=== PATIENT | female | born 1935 | race Caucasian/White ===

== ENCOUNTER 2017-12-21 14:53 | Inpatient (IN) | payer MEDICARE ==
[~2017-12-21] VITALS: Ht 160 cm; Wt 81.9 kg
--- NOTE | ~2017-12-21 | EKG ---
[place], [place] ELECTROCARDIOGRAM REPORT NAME: MAGGIE GARCES UNIT #: [id number] ROOM: 524 DOCTOR: JACE DRAFT REPORT BIRTHDATE: [birth year] [facility] Test Date: 2017-12-21 Test Time: 15:39:19 Pat Name: MAGGIE GARCES Department: Patient ID: ELOH- Room: Gender: F Housing Specialist: SS RESP : 1935 Requested By: KRZYSZTOF WEINSTEIN Order Number: [id number] Reading MD: Zheng Lenz MD Measurements Intervals [place] Rate: 69 P: -32 DE: 181 QRS: -27 QRSD: 103 T: 31 QT: 448 QTc: 480 Interpretive Statements Sinus rhythm Borderline left axis deviation Low voltage, precordial leads Abnormal R-wave progression, early transition Electronically Signed On 12-21-2017 21:02:49 PDT by Zheng Lenz MD CM:EKGRPT:ELECTROCARDIOGRAM REPORT [id number] KRZYSZTOF MCCORMICK DRAFT REPORT KRZYSZTOF WEINSTEIN MD
[2017-12-21 14:55] VITALS: BP 92/33
[2017-12-21 15:55] LABS: BASO # 0.1 10*3/uL (0.0-0.1); BASO % 0.6 % (0.0-1.0); EOS # 0.1 10*3/uL (0.0-0.4); EOS % 1.1 % (1.0-4.0); HEMATOCRIT 34.6 % (37.0-47.0); HEMOGLOBIN 11.3 g/dl (12.0-16.0); LYMPH # 1.9 10*3/uL (1.3-4.4); LYMPH % 23.9 % (27.0-41.0); MEAN CORPUSCULAR HGB 30.4 pg (27.0-31.0); MEAN CORPUSCULAR HGB CONC 32.7 g/dl (33.0-37.0); MEAN PLATELET VOLUME 10.3 fl (9.6-12.3); MONO # 0.6 10*3/uL (0.1-1.0); MONO % 7.8 % (3.0-9.0); NEUT # 5.3 10*3/uL (2.3-7.9); NEUT % 66.2 % (47.0-73.0); PLATELET COUNT AUTOMATED 212 10*3/uL (130-400); RED BLOOD COUNT 3.72 10*6/uL (4.10-5.10)
[2017-12-21 16:03] LABS: ACT PARTIAL THROMBO TIME 22.1 SECONDS (20.8-31.5); INTERNATIONAL NORM RATIO 1.1 (2.0-3.5)
[2017-12-21 16:10] LABS: ALBUMIN 2.9 gm/dl (3.1-4.5); ALKALINE PHOSPHATASE 125 U/L (45-117); BUN 43 mg/dl (7-24); CHLORIDE 110 mmol/L (98-107); CREATININE 1.51 mg/dL (0.55-1.02); POTASSIUM 3.8 mmol/L (3.5-5.1); SGOT/AST 22 IU/L (3-35); SGPT/ALT 39 U/L (12-78); SODIUM 142 mmol/L (136-145); TOTAL PROTEIN 5.8 gm/dL (6.4-8.2)
[2017-12-21 16:12] LABS: TROPONIN I < 0.015 ng/ml (<0.045)
[2017-12-21 17:32] VITALS: BP 129/59
[2017-12-21] MEDS ORDERED: POTASSIUM CHLO10 MEQ PO (18:21)
[2017-12-21] MEDS ORDERED: TRAVATAN Z 2.52.5 ML OU (18:22)
[2017-12-21] MEDS ORDERED: LEVOTHYROXINE50 MCG PO (18:22)
[2017-12-21] MEDS ORDERED: LOSARTAN-HCTZ1 EAC1 PO (18:23)
[2017-12-21] MEDS ORDERED: LOPRESSOR25 MG PO (18:24)
[2017-12-21] MEDS ORDERED: ZOCOR20 MG PO (18:24)
[2017-12-21 18:36] LABS: BILIRUBIN NEGATIVE (NEGATIVE); BLOOD NEGATIVE (NEGATIVE); CLARITY CLEAR (CLEAR); COLOR YELLOW (YELLOW); GLUCOSE NEGATIVE (NEGATIVE); KETONE NEGATIVE (NEGATIVE); LEUKO ESTERASE NEGATIVE (NEGATIVE); NITRITE NEGATIVE (NEGATIVE); PH 5.5 (5.0-9.0); SPECIFIC GRAVITY 1.015 (1.005-1.030); UROBILINOGEN 0.2 E.U./dl (0.2-1.0)
[2017-12-21 19:00] LABS: EPITHELIAL CELLS 0-2; HYALINE CAST 0-2; WBC 0-2 wbc/hpf (0-5)
[2017-12-21 20:00] VITALS: BP 130/57
[2017-12-22] VITALS: BP 129/60
[2017-12-22 04:00] VITALS: BP 100/54
[2017-12-22 06:17] LABS: ALBUMIN 3.2 gm/dl (3.1-4.5); CREATININE 1.14 mg/dL (0.55-1.02); FREE T4 1.04 ng/dl (0.76-1.46); PHOSPHOROUS 2.9 mg/dL (2.5-4.9); POTASSIUM 3.2 mmol/L (3.5-5.1); TOTAL PROTEIN 6.1 gm/dL (6.4-8.2)
[2017-12-22 06:22] LABS: THYROID STIM HORMONE (HS) 2.97 uIU/ml (0.358-4.75)
[2017-12-22 06:29] LABS: BASO % 0.6 % (0.0-1.0); EOS # 0.1 10*3/uL (0.0-0.4); EOS % 1.8 % (1.0-4.0); HEMATOCRIT 31.8 % (37.0-47.0); HEMOGLOBIN 10.3 g/dl (12.0-16.0); LYMPH # 2.5 10*3/uL (1.3-4.4); LYMPH % 34.6 % (27.0-41.0); MEAN CORPUSCULAR HGB 28.8 pg (27.0-31.0); MEAN CORPUSCULAR HGB CONC 32.4 g/dl (33.0-37.0); MEAN PLATELET VOLUME 10.5 fl (9.6-12.3); MONO # 0.6 10*3/uL (0.1-1.0); MONO % 7.7 % (3.0-9.0); NEUT # 3.9 10*3/uL (2.3-7.9); PLATELET COUNT AUTOMATED 203 10*3/uL (130-400); RED BLOOD COUNT 3.58 10*6/uL (4.10-5.10); RED CELL DISTRI WIDTH 13.8 % (0-14.5); WHITE BLOOD COUNT 7.1 10*3/uL (4.8-10.8)
[2017-12-22 06:30] LABS: MEAN CELL VOLUME 88.8 fl (81.0-99.0)
[2017-12-22 08:00] VITALS: BP 146/78
[2017-12-22 08:20] VITALS: BP 146/78
[2017-12-22 08:43] LABS: VITAMIN D, 25-HYDROXY 39.1 ng/mL (30-100)
[2017-12-22 12:00] VITALS: BP 145/62
[2017-12-22] MEDS ORDERED: LOSARTAN POTAS100 M1 PO (15:33)
[2017-12-22 16:00] VITALS: BP 110/60
== END 2017-12-22 16:30 | disposition home or self-care (01) | DRG 314 ==
LOC: ED 14:53 → 5E 17:08 → EDHOLD 17:08 → 5E 18:12
PROVIDERS: Emergency Medicine; Internal Medicine
DX: I95.9 Hypotension, unspecified (principal); N17.0 Acute kidney failure with tubular necrosis; E87.2 Acidosis; E46 Unspecified protein-calorie malnutrition; E86.0 Dehydration; D64.9 Anemia, unspecified; I10 Essential (primary) hypertension; E78.5 Hyperlipidemia, unspecified; E03.9 Hypothyroidism, unspecified; R73.9 Hyperglycemia, unspecified; E87.6 Hypokalemia; E87.8 Other disorders of electrolyte and fluid balance, not elsewhere classified; E83.51 Hypocalcemia; Z82.49 Family history of ischemic heart disease and other diseases of the circulatory system; Z79.899 Other long term (current) drug therapy; Z68.31 Body mass index [BMI] 31.0-31.9, adult